=== PATIENT | female | born 1935 | race Caucasian/White ===

== ENCOUNTER 2016-10-19 07:51 | Inpatient (IN) | payer MEDICARE ==
[~2016-10-19] VITALS: Ht 157.5 cm; Wt 72.0 kg
[2016-10-19] MEDS ORDERED: CHOL1TAB42 PO (08:37)
[2016-10-19] MEDS ORDERED: SULF500T3 PO (08:37)
[2016-10-19] MEDS ORDERED: POTA10TA2 PO (08:37)
[2016-10-19] MEDS ORDERED: BISO10TA2 PO (08:37)
[2016-10-19] MEDS ORDERED: VITA10007 PO (08:37)
[2016-10-19] MEDS ORDERED: HYDR200T3 PO (08:37)
[2016-10-19] MEDS ORDERED: BOSW5TAB PO (08:37)
[2016-10-19] MEDS ORDERED: AMLO5TAB2 PO (08:37)
[2016-10-19] MEDS ORDERED: VITA10004 PO (08:37)
[2016-10-19] MEDS ORDERED: ZBEC PO (08:37)
[2016-10-19] MEDS ORDERED: TRAM50TA PO (08:37)
[2016-10-19] MEDS ORDERED: ZOLP5TAB3 PO (08:37)
[2016-10-19] MEDS ORDERED: ASPI1TAB69 PO (08:37)
[2016-10-19] MEDS ORDERED: FISH120014 PO (08:37)
[2016-10-19] MEDS ORDERED: CALTTAB PO (08:37)
[2016-10-19] MEDS ORDERED: LEVO25TA4 PO (08:37)
[2016-10-19] MEDS ORDERED: VITA400C5 PO (08:37)
[2016-10-19] MEDS ORDERED: ZYRT10CA PO (08:42)
[2016-10-30 05:43] VITALS: BP 176/69; PULSE 65; RESP 16; TEMP 97.6; O2SAT 100
[2016-10-30] MEDS: CHLORHEXIDINE GLUCONATE 4% SOLN 120 ML BTL TOP SCH (05:45)
[2016-10-30] MEDS ORDERED: INSULIN HUMAN REGULAR 1,000 UNITS/10 ML VIAL SQ PRN (05:45)
[2016-10-30] MEDS ORDERED: METOPROLOL TARTRATE 25 MG TAB PO PRN (05:45)
[2016-10-30] MEDS ORDERED: GENTAMICIN SULFATE 80 MG/2 ML VIAL ONE (06:05)
[2016-10-30] MEDS ORDERED: MIDAZOLAM HCL 5 MG/5 ML VIAL ONE (06:24)
[2016-10-30] MEDS ORDERED: ACETAMINOPHEN 1000 MG/100 ML VIAL IV ONE (06:52)
[2016-10-30] MEDS ORDERED: ceFAZolin 2 GM PREMIX 50 ML ONE (06:58)
[2016-10-30] MEDS ORDERED: SODIUM CHLORIDE 0.9% IV SCH ×2 (07:00→10:00)
[2016-10-30] MEDS ORDERED: ceFAZolin 1,000 MG/NS 100 ML IV SCH ×2 (07:00)
[2016-10-30] MEDS ORDERED: TRANEXAMIC ACID IV SCH ×2 (07:00→10:00)
[2016-10-30] MEDS ORDERED: EXPAREL PERI-ARTICULAR INJECTION (TOTAL VOL. 100 ML) P-ARTICULR SCH ×2 (07:00)
[2016-10-30] MEDS ORDERED: SODIUM CHLORID 0.9% 500 ML IV SCH (07:00)
[2016-10-30] MEDS ORDERED: LACTATED RINGER'S 1000 ML IV SCH (07:00)
[2016-10-30] MEDS ORDERED: TRANEXAMIC ACID INJ 1,000 MG/10 ML AMP IV ONE (07:12)
[2016-10-30] MEDS ORDERED: MORPHINE SULFATE 4 MG/ML INJ IV PUSH PRN (07:15)
[2016-10-30] MEDS ORDERED: ZOLPIDEM TARTRATE 5 MG TAB PO PRN ×2 (07:15→09:15)
[2016-10-30] MEDS ORDERED: SODIUM CHLORIDE 0.9% FLUSH 5 ML FLUSH IVF PRN (07:15)
[2016-10-30] MEDS ORDERED: ONDANSETRON HCL 4 MG/2 ML VIAL IVP PRN (07:15)
[2016-10-30] MEDS ORDERED: TRANEXAMIC ACID INJ 0 MG in SODIUM CHLORIDE 0.9% INJ 100 ML IV SCH (07:15)
[2016-10-30] MEDS ORDERED: BUPIVACAINE LIPOSOME PF 1.3% 20 ML VIAL INFIL ONE (07:30)
[2016-10-30] MEDS: SODIUM CHLORIDE 0.9% FLUSH 5 ML FLUSH IVF SCH ×2 (09:00→20:24)
[2016-10-30] MEDS ORDERED: CETIRIZINE HCL 10 MG TAB PO PRN (09:15)
[2016-10-30] MEDS ORDERED: Post-op Orders (for Pharmacy) MISC XX ONE (09:26)
[2016-10-30] MEDS ORDERED: PILL SPLITTER OTHER PRN (09:45)
[2016-10-30] MEDS ORDERED: DO NOT ADM ANY ANTICOAGULANT DRUGS XX PRN (10:00)
[2016-10-30] MEDS: LACTATED RINGER'S 1000 ML INJ 1,000 ML IV SCH ×3 (10:48→22:09)
[2016-10-30] MEDS: KETOROLAC TROMETHAMINE 30 MG/ML (IVP) VIAL IVP SCH ×3 (10:55→22:03)
--- NOTE | 2016-10-30 11:43 | RADRPT ---
EXAM DATE/TIME: 10/30/2016 10:14 [place] COMPARISON: No previous studies available for comparison. INDICATIONS : Post op left knee surgery. MEDICAL HISTORY : Unobtainable. SURGICAL HISTORY : Unobtainable. ENCOUNTER: Initial ACUITY: 1 day PAIN SCORE: 0/10 LOCATION: Left knee. FINDINGS: Two view examination of the left knee demonstrates total knee arthroplasty. All 3 components are prop erly positioned. Suprapatellar drain is in place. Lucency overlying the anterior cortex of the proxim al tibia I believe represents an overlying catheter/tubing. CONCLUSION: Appropriate postoperative appearance of the left knee status post total arthroplasty. Suprapatel lar drain is in place. Morgan Rodas MD on October 30, 2016 at 11:39 Board Certified Radiologist. This report was verified electronically.
[2016-10-30] MEDS ORDERED: PROPOFOL 200 MG/20 ML AMP IV ONE (12:00)
[2016-10-30] MEDS ORDERED: LACTATED RINGER'S 1000 ML INJ 1,000 ML IV ONE (12:00)
[2016-10-30] MEDS ORDERED: ePHEDrine/NS 50 MG/5 ML SYR IV ONE (12:00)
[2016-10-30] MEDS ORDERED: BUPIVACAINE HCL PF 0.5% 30 ML VIAL NB ONE (12:52)
--- NOTE | 2016-10-30 15:02 | PD.CONS ---
HPI Service [facility] Hospital[facility] Consult Requested By Orthopedic service Reason for Consult Medical management postop history of rheumatoid arthritis hypothyroidism hypertension Primary Care Physician Non-Staff Diagnoses: History of Present Illness Patient is a very pleasant 81-year-old female who looks younger than stated age who was admitted here and underwent left total knee arthroplasty today by Dr. Frank. Patient has history of rheumatoid arthritis hypertension hypothyroidism who has been having increasing pain of the left knee and finally admitted for this procedure. Review of Systems Constitutional: DENIES: Diaphoretic episodes, Fatigue, Fever, Weight gain, Weight loss, Chills, Dizziness, Change in appetite, Night Sweats Endocrine: DENIES: Abnorml menstrual pattern, Heat/cold intolerance, Polydipsia , Polyuria, Polyphagia Eyes: DENIES: Blurred vision, Diplopia, Eye inflammation, Eye pain, Vision loss , Photosensitivity, Double Vision Ears, nose, mouth, throat: DENIES: Tinnitus, Hearing loss, Vertigo, Nasal discharge, Oral lesions, Throat pain, Hoarseness, Ear Pain, Running Nose, Epistaxis, Sinus Pain, Toothache, Odynophagia Respiratory: DENIES: Apneas, Cough, Snoring, Wheezing, Hemoptysis, Sputum production, Shortness of breath Cardiovascular: DENIES: Chest pain, Palpitations, Syncope, Dyspnea on Exertion , PND, Lower Extremity Edema, Orthopnea, Claudication Gastrointestinal: DENIES: Abdominal pain, Black stools, Bloody stools, Constipation, Diarrhea, Nausea, Vomiting, Difficulty Swallowing, Anorexia Genitourinary: DENIES: Abnormal vaginal bleeding, Dysmenorrhea, Dyspareunia, Sexual dysfunction, Urinary frequency, Urinary incontinence, Urgency, Hematuria , Dysuria, Nocturia, Vaginal discharge Musculoskeletal: COMPLAINS OF: Joint pain Integumentary: DENIES: Abnormal pigmentation, Pruritus, Rash, Nail changes, Breast masses, Breast skin changes, Nipple discharge Hematologic/lymphatic: DENIES: Bruising, Lymphadenopathy Immunologic/allergic: DENIES: Eczema, Urticaria Neurologic: DENIES: Abnormal gait, Headache, Localized weakness, Paresthesias, Seizures, Speech Problems, Tremor, Poor Balance Psychiatric: DENIES: Anxiety, Confusion, Mood changes, Depression, Hallucinations, Agitation, Suicidal Ideation, Homicidal Ideation, Delusions Past Family Social History Allergies: Coded Allergies: Penicillin (Verified Allergy, Severe, Hives, 10/30/16) Past Medical History History of rheumatoid arthritis Hypertension Hypothyroidism Allergy Past Surgical History Hysterectomy Bilateral cataract surgery Right fifth finger surgery Reported Medications Vitamin C, vitamin B 12, potassium chloride daily Karla a 10 mg daily Hydrochlorothiazide 6.25 mg daily Synthroid 25 g daily Amlodipine 5 mg daily Plaquenil 200 mg twice a Sulfadiazine 500 mg twice a day Os-Angel plus vitamin D Cetirizine Active Ordered Medications See EMR Family History Noncontributory Social History Nonsmoker Occasional wine Physical Exam Vital Signs Vital Signs Date Time Temp Pulse Resp B/P Pulse Ox O2 Delivery O2 Flow Rate FiO2 10/30/16 11:30 59 16 145/65 100 Nasal Cannula 2 10/30/16 11:00 96.5 59 16 143/57 99 Nasal Cannula 2 10/30/16 10:30 96.3 58 16 138/56 100 Nasal Cannula 2 10/30/16 10:15 60 16 133/58 100 Nasal Cannula 2 10/30/16 10:00 60 15 134/50 100 Nasal Cannula 2 10/30/16 09:45 58 15 117/55 100 Nasal Cannula 2 10/30/16 09:28 95.8 61 15 114/58 100 Nasal Cannula 2 10/30/16 06:35 68 12 138/69 98 10/30/16 06:15 99 Nasal Cannula 3 10/30/16 05:59 97.7 61 14 176/66 99 10/30/16 05:43 97.6 65 16 176/69 100 Physical Exam GENERAL: This is a well-nourished, well-developed patient, in no apparent distress. SKIN: No rashes, ecchymoses or lesions. Cool and dry. HEAD: Atraumatic. Normocephalic. EYES: Pupils equal round and reactive. Extraocular motions intact. No scleral icterus. ENT: Nose without bleeding, Throat without erythema, tonsillar hypertrophy or exudate. Uvula midline. Airway patent. NECK: Trachea midline. No JVD or lymphadenopathy. Supple, nontender, no meningeal signs. CARDIOVASCULAR: Regular rate and rhythm RESPIRATORY: Clear to auscultation. Breath sounds equal bilaterally. No wheezes , rales, or rhonchi. GASTROINTESTINAL: Abdomen soft, non-tender, nondistended. No hepato-splenomegaly , or palpable masses. No guarding. MUSCULOSKELETAL: Extremities without clubbing, cyanosis, or edema. Left lower extremity with post op plastic bandage dressing in place and draining place Negative Homans sign bilaterally. NEUROLOGICAL: Awake and alert. Cranial nerves II through XII intact. Moves all extremities spontaneously Laboratory Laboratory Tests Test 10/30/16 10/30/16 05:45 07:17 Blood Type O NEGATIVE O NEGATIVE Antibody Screen POSITIVE Antibody Identification Anti-D Crossmatch Leukocyte-Reduced Red Blood Cells Blood Bank Comment Imaging Last Impressions Knee X-Ray 10/30/16 0000 Signed Impressions: Service Date/Time: Sunday, October 30, 2016 10:14 - CONCLUSION: Appropriate postoperative appearance of the left knee status post total arthroplasty. Suprapatellar drain is in place. Morgan Rodas MD Assessment and Plan Assessment and Plan 81-year-old female admitted for left knee surgery Status post left total knee arthroplasty Orthopedic surgery following History of hypertension continue on medications hydrochlorothiazide, amlodipine , Zebeta History of rheumatoid arthritis. Continue on regimen of Plaquenil sulfas Diazine History of hypothyroidism continue Synthroid 25 g daily Continue on cetirizine for history of allergy DVT prophylaxis per orthopedics DC planning- [facility] facility Thank you for this consult we'll follow patient in-house with you Carmela Deutsch MD Oct 30, 2016 15:02
[2016-10-30] MEDS ORDERED: *morphine SULFATE 8 MG/ML PERIprocedure ONLY ONE ×2 (15:45→16:54)
[2016-10-30 18:02] VITALS: BP 136/65; PULSE 67; RESP 20; TEMP 100.8; O2SAT 95
[2016-10-30] MEDS: CALCIUM/VITAMIN D 250 MG/125 U TAB PO SCH (20:22)
[2016-10-30] MEDS: HYDROXYCHLOROQUINE SULFATE 200 MG TAB PO SCH (20:23)
[2016-10-30] MEDS: ACETAMINOPHEN/HYDROcodone 325 MG/7.5 MG TAB PO PRN ×2 (20:23→22:03)
[2016-10-30] MEDS: amLODIPine BESYLATE 5 MG TAB PO SCH (20:23)
[2016-10-30] MEDS: MAGNESIUM HYDROXIDE SUSP 30 ML CUP PO PRN (20:24)
[2016-10-30 20:39] VITALS: BP 128/54; PULSE 69; RESP 16; TEMP 98.6; O2SAT 96
[2016-10-30] MEDS: sulfaSALAzine 500 MG TAB PO SCH (21:06)
[2016-10-31] VITALS (7 sets, daily range): BP systolic 112–146; BP diastolic 55–66; PULSE 61–69; RESP 15–18; TEMP 97–98.2; O2SAT 90–97
[2016-10-31] MEDS: ACETAMINOPHEN/HYDROcodone 325 MG/7.5 MG TAB PO PRN ×5 (02:57→20:21)
[2016-10-31] MEDS: CHLORHEXIDINE GLUCONATE 4% SOLN 120 ML BTL TOP SCH ×2 (04:35→20:09)
[2016-10-31] MEDS: LEVOTHYROXINE SODIUM 25 MCG TAB PO SCH (05:37)
[2016-10-31] MEDS: KETOROLAC TROMETHAMINE 30 MG/ML (IVP) VIAL IVP SCH ×4 (05:38→23:44)
[2016-10-31 07:02] LABS: HEMATOCRIT 31.7 % (35.0-46.0); REVIEW FLAG FINAL
--- NOTE | 2016-10-31 07:11 | PD.ORT.PN ---
Subjective Post Op Day #: 1 Subjective Remarks She had a tetracaine spinal that lasted all day yesterday, so she had no PT. She has not dangled. There is no pain of significance. Objective Vitals Vital Signs Date Time Temp Pulse Resp B/P Pulse Ox O2 Delivery O2 Flow Rate FiO2 10/31/16 04:00 97.9 61 15 123/56 96 10/31/16 00:38 97.6 67 16 112/56 97 10/30/16 20:39 98.6 69 16 128/54 96 10/30/16 18:02 100.8 67 20 136/65 95 10/30/16 17:00 98.9 75 16 148/62 97 Nasal Cannula 2 10/30/16 16:00 75 16 141/65 98 Nasal Cannula 2 10/30/16 15:00 70 16 157/64 98 Nasal Cannula 2 10/30/16 14:00 70 16 153/58 97 Nasal Cannula 2 10/30/16 13:30 71 16 131/62 97 Nasal Cannula 2 10/30/16 13:00 69 16 126/53 97 Nasal Cannula 2 10/30/16 12:30 65 16 125/52 97 Nasal Cannula 2 10/30/16 12:00 97.6 67 16 125/56 100 Nasal Cannula 2 10/30/16 11:30 59 16 145/65 100 Nasal Cannula 2 10/30/16 11:00 96.5 59 16 143/57 99 Nasal Cannula 2 10/30/16 10:30 96.3 58 16 138/56 100 Nasal Cannula 2 10/30/16 10:15 60 16 133/58 100 Nasal Cannula 2 10/30/16 10:00 60 15 134/50 100 Nasal Cannula 2 10/30/16 09:45 58 15 117/55 100 Nasal Cannula 2 10/30/16 09:28 95.8 61 15 114/58 100 Nasal Cannula 2 I/O 10/30/16 10/30/16 10/30/16 10/31/16 10/31/16 10/31/16 07:00 15:00 23:00 07:00 15:00 23:00 Intake Total 1550 ml 880 ml 240 ml Output Total 250 ml 1200 ml 110 ml Balance 1300 ml -320 ml 130 ml Intake Oral 480 ml 240 ml IV Total 400 ml Other 1550 ml Output Urine Total 100 ml 1000 ml Drainage Total 200 ml 110 ml Estimated Blood Loss 150 ml # Voids 4 1 # Bowel Movements 0 0 Result Diagram: 10/31/16 0613 Imaging Knee x-ray looks good. Last 72 hours Impressions Knee X-Ray 10/30/16 0000 Signed Impressions: Service Date/Time: Sunday, October 30, 2016 10:14 - CONCLUSION: Appropriate postoperative appearance of the left knee status post total arthroplasty. Suprapatellar drain is in place. Morgan Rodas MD Objective Remarks She is resting comfortably, supine in bed in the CPM. The original surgical dressing is dry and intact. The neurovascular status is intact. Assessment & Plan Ortho Post Op Day #: 1 Problem List: (1) Status post total left knee replacement Plan: Continue postop care. Start PT. Assessment and Plan Condition: Good. Orthopaedically stable. DVT prophylaxis: MOE stockings, sequentials, ASA. Discharge plans: Home with [facility], or Saturday. Has appointment. Rx: [place] 7.5/325. Shaye Frank MD (Charles) Oct 31, 2016 07:11
[2016-10-31] MEDS: BISOPROLOL FUMARATE 5 MG TAB PO SCH (07:28)
[2016-10-31] MEDS: HYDROCHLOROTHIAZIDE 25 MG TAB PO SCH (07:30)
[2016-10-31] MEDS: ASCORBIC ACID 500 MG TAB PO SCH (07:31)
[2016-10-31] MEDS: CYANOCOBALAMIN 1,000 MCG TAB PO SCH (07:31)
[2016-10-31] MEDS: CALCIUM/VITAMIN D 250 MG/125 U TAB PO SCH ×2 (07:31→20:10)
[2016-10-31] MEDS: HYDROXYCHLOROQUINE SULFATE 200 MG TAB PO SCH ×2 (07:31→20:11)
[2016-10-31] MEDS: sulfaSALAzine 500 MG TAB PO SCH ×2 (07:32→20:11)
[2016-10-31] MEDS: POTASSIUM CHLORIDE 10 MEQ CONTROLLED RELEASE TAB PO SCH (07:32)
[2016-10-31] MEDS: ASPIRIN EC 325 MG TABEC PO SCH (07:36)
--- NOTE | 2016-10-31 07:44 | HHI.FF ---
Face to Face Verification Diagnosis: (1) Status post total left knee replacement Physical Therapy Gait training Knee: Total knee, Protocol: Left, Gait training, Full weight bearing Left LE Weight Bearing: WB as tolerated Left LE Range of Motion: Active ROM (AROM, AAROM, PROM, PRE. ROM goal is 0 to 140 degrees. ROM in the OR was 0 to 150 degrees.) Nursing Nursing: Dressing changes Dressing Changes: Daily dressing change, Coverderm/Primapore Additional Instructions Remove steristrips on postop day 14. I have seen patient Cristiana Fernández on 10/31/16. My clinical findings support the need for the requested home health care services because: Ltd mobility - disease progression Limited ability to care for self High risk of falls I certify that my clinical findings support that this patient is homebound because: Post-op weakness Unsteady gait/balance Unsafe to leave home unassisted Shaye Frank MD (Charles) Oct 31, 2016 07:44
[2016-10-31] MEDS ORDERED: WALKER WHEELS/F1 MIS (07:48)
[2016-10-31] MEDS ORDERED: HYDR-3580 PO (07:48)
[2016-10-31] MEDS ORDERED: Aspirin Ec PO (07:48)
[2016-10-31] MEDS ORDERED: MISC-163 (07:48)
[2016-10-31] MEDS ORDERED: NON-FORMULARY DRUG (Boswellia-Glucosamine-Vitamin (Osteo Bi-Flex One A Day) 1 TAB) PO SCH (09:00)
[2016-10-31] MEDS ORDERED: RIVAROXABAN 10 MG TAB PO SCH (09:00)
[2016-10-31] MEDS ORDERED: NON-FORMULARY DRUG (Bisoprolol-Hydrochlorothiazide 1 TAB) PO SCH (09:00)
--- NOTE | 2016-10-31 09:23 | HHI.PR ---
Subjective Remarks very motivated with physical therapy voided, slightly emotional Objective Vitals Vital Signs Date Time Temp Pulse Resp B/P Pulse Ox O2 Delivery O2 Flow Rate FiO2 10/31/16 08:00 97.4 64 18 120/59 94 10/31/16 04:00 97.9 61 15 123/56 96 10/31/16 00:38 97.6 67 16 112/56 97 10/30/16 20:39 98.6 69 16 128/54 96 10/30/16 18:02 100.8 67 20 136/65 95 10/30/16 17:00 98.9 75 16 148/62 97 Nasal Cannula 2 10/30/16 16:00 75 16 141/65 98 Nasal Cannula 2 10/30/16 15:00 70 16 157/64 98 Nasal Cannula 2 10/30/16 14:00 70 16 153/58 97 Nasal Cannula 2 10/30/16 13:30 71 16 131/62 97 Nasal Cannula 2 10/30/16 13:00 69 16 126/53 97 Nasal Cannula 2 10/30/16 12:30 65 16 125/52 97 Nasal Cannula 2 10/30/16 12:00 97.6 67 16 125/56 100 Nasal Cannula 2 10/30/16 11:30 59 16 145/65 100 Nasal Cannula 2 10/30/16 11:00 96.5 59 16 143/57 99 Nasal Cannula 2 10/30/16 10:30 96.3 58 16 138/56 100 Nasal Cannula 2 10/30/16 10:15 60 16 133/58 100 Nasal Cannula 2 10/30/16 10:00 60 15 134/50 100 Nasal Cannula 2 10/30/16 09:45 58 15 117/55 100 Nasal Cannula 2 10/30/16 09:28 95.8 61 15 114/58 100 Nasal Cannula 2 I/O 10/30/16 10/30/16 10/30/16 10/31/16 10/31/16 10/31/16 07:00 15:00 23:00 07:00 15:00 23:00 Intake Total 1550 ml 880 ml 240 ml Output Total 250 ml 1200 ml 110 ml Balance 1300 ml -320 ml 130 ml Intake Oral 480 ml 240 ml IV Total 400 ml Other 1550 ml Output Urine Total 100 ml 1000 ml Drainage Total 200 ml 110 ml Estimated Blood Loss 150 ml # Voids 4 1 # Bowel Movements 0 0 Result Diagram: 10/31/16 0613 Imaging Last Impressions Knee X-Ray 10/30/16 0000 Signed Impressions: Service Date/Time: Sunday, October 30, 2016 10:14 - CONCLUSION: Appropriate postoperative appearance of the left knee status post total arthroplasty. Suprapatellar drain is in place. Morgan Rodas MD Objective Remarks GENERAL: awake and alert, SKIN: Warm and dry. EYES: No scleral icterus. No injection or drainage. NECK: Supple, trachea midline. No JVD or lymphadenopathy. CARDIOVASCULAR: Regular rate and rhythm without murmurs, gallops, or rubs. RESPIRATORY: Breath sounds equal bilaterally. No accessory muscle use. GASTROINTESTINAL: Abdomen soft, non-tender, nondistended. Left knee- post op dressing in place, hemovac in place, moves toes, Procedures 10/30- left total knee arthroplasty A/P Assessment and Plan 81-year-old female admitted for left knee surgery Status post left total knee arthroplasty Orthopedic surgery following History of hypertension continue on medications hydrochlorothiazide, amlodipine , Zebeta History of rheumatoid arthritis. Continue on regimen of Plaquenil sulfasalazine History of hypothyroidism continue Synthroid 25 g daily Continue on cetirizine for history of allergy DVT prophylaxis - per ortho- DC planning- intermediate facility Carmela Deutsch MD Oct 31, 2016 09:23
[2016-10-31] MEDS ORDERED: INFLUENZA VIRUS VACCINE (QUADRIVALENT) 0.5 ML SYR IM ONE (10:00)
[2016-10-31] MEDS: LACTATED RINGER'S 1000 ML INJ 1,000 ML IV SCH (20:09)
[2016-10-31] MEDS: SODIUM CHLORIDE 0.9% FLUSH 5 ML FLUSH IVF SCH (20:09)
[2016-10-31] MEDS: DOCUSATE SODIUM 100 MG CAP PO SCH (20:10)
[2016-10-31] MEDS: amLODIPine BESYLATE 5 MG TAB PO SCH (20:10)
[2016-10-31] MEDS: MAGNESIUM HYDROXIDE SUSP 30 ML CUP PO PRN (20:11)
[2016-11-01] VITALS: BP 145/65; PULSE 66; RESP 15; TEMP 97.1; O2SAT 92
[2016-11-01] MEDS: ACETAMINOPHEN/HYDROcodone 325 MG/7.5 MG TAB PO PRN ×3 (04:55→20:46)
[2016-11-01] MEDS: LEVOTHYROXINE SODIUM 25 MCG TAB PO SCH (05:00)
[2016-11-01] MEDS: KETOROLAC TROMETHAMINE 30 MG/ML (IVP) VIAL IVP SCH (05:00)
[2016-11-01 05:24] LABS: HEMATOCRIT 33.9 % (35.0-46.0); REVIEW FLAG FINAL
[2016-11-01 08:00] VITALS: BP 105/55; PULSE 69; RESP 16; TEMP 97.8; O2SAT 91
--- NOTE | 2016-11-01 08:51 | PD.ORT.PN ---
Subjective Post Op Day #: 2 Subjective Remarks She is doing well. She had nausea yesterday. There is no pain of significance. Range of Motion 0 to 87 degrees. Distance Walked 12 feet. Objective Vitals Vital Signs Date Time Temp Pulse Resp B/P Pulse Ox O2 Delivery O2 Flow Rate FiO2 11/01/16 00:00 97.1 66 15 145/65 92 10/31/16 20:00 98.2 69 15 146/66 96 10/31/16 16:00 98.1 65 18 135/56 93 10/31/16 12:51 93 21 10/31/16 12:00 97.0 63 18 140/55 90 I/O 10/31/16 10/31/16 10/31/16 11/01/16 11/01/16 11/01/16 07:00 15:00 23:00 07:00 15:00 23:00 Intake Total 240 ml 960 ml 240 ml 240 ml Output Total 110 ml 95 ml 45 ml Balance 130 ml 960 ml 145 ml -45 ml 240 ml Intake Oral 240 ml 960 ml 240 ml 240 ml Drainage Total 110 ml 95 ml 45 ml # Voids 1 2 2 2 # Bowel Movements 0 0 0 1 Result Diagram: 11/01/16 0445 Imaging Knee x-ray looks good. Last 72 hours Impressions Knee X-Ray 10/30/16 0000 Signed Impressions: Service Date/Time: Sunday, October 30, 2016 10:14 - CONCLUSION: Appropriate postoperative appearance of the left knee status post total arthroplasty. Suprapatellar drain is in place. Morgan Rodas MD Objective Remarks She is OOB on the BSC. The dressing is dry and intact. The neurovascular status is intact. Assessment & Plan Ortho Post Op Day #: 2 Problem List: (1) Status post total left knee replacement Plan: Continue postop care. Start PT. Assessment and Plan Condition: Good. Orthopaedically stable. DVT prophylaxis: MOE stockings, sequentials, ASA. Discharge plans: SNF for rehab, Saturday. Has appointment. Rx: [place] 7.5/325. Shaye Frank MD (Charles) Nov 01, 2016 08:51
[2016-11-01] MEDS: BISOPROLOL FUMARATE 5 MG TAB PO SCH (09:00)
[2016-11-01] MEDS: HYDROCHLOROTHIAZIDE 25 MG TAB PO SCH (09:00)
[2016-11-01] MEDS: sulfaSALAzine 500 MG TAB PO SCH ×2 (09:00→20:47)
[2016-11-01] MEDS: LACTATED RINGER'S 1000 ML INJ 1,000 ML IV SCH ×2 (09:04→20:48)
[2016-11-01] MEDS: traMADol HCL 50 MG TAB PO PRN ×2 (09:50→18:04)
[2016-11-01] MEDS: CALCIUM/VITAMIN D 250 MG/125 U TAB PO SCH ×2 (09:50→20:47)
[2016-11-01] MEDS: ASCORBIC ACID 500 MG TAB PO SCH (09:51)
[2016-11-01] MEDS: ASPIRIN EC 325 MG TABEC PO SCH (09:51)
[2016-11-01] MEDS: CYANOCOBALAMIN 1,000 MCG TAB PO SCH (09:51)
[2016-11-01] MEDS: POTASSIUM CHLORIDE 10 MEQ CONTROLLED RELEASE TAB PO SCH (09:54)
[2016-11-01] MEDS: DOCUSATE SODIUM 100 MG CAP PO SCH ×2 (09:54→20:47)
[2016-11-01] MEDS: SODIUM CHLORIDE 0.9% FLUSH 5 ML FLUSH IVF SCH ×2 (09:54→20:48)
[2016-11-01] MEDS: HYDROXYCHLOROQUINE SULFATE 200 MG TAB PO SCH ×2 (09:54→20:46)
[2016-11-01 12:00] VITALS: BP 133/59; PULSE 70; RESP 16; TEMP 96.1; O2SAT 93
--- NOTE | 2016-11-01 12:24 | MP ---
cc: Joseph YEPEZ. DATE OF SURGERY 10/30/2016 PREOPERATIVE DIAGNOSIS Primary osteoarthritis left knee. POSTOPERATIVE DIAGNOSIS Primary osteoarthritis left knee. OPERATION PERFORMED Left total knee arthroplasty with [place] Triathlon prosthesis (uncemented). SURGEON Shaye Yepez MD ANESTHESIA Spinal with supplemental adductor canal block and local. INDICATIONS AND FINDINGS This 81-year-old woman has had an 18-year history of left knee pain which has increased gradually over the years but more aggressively recently. It has limited her activities of daily living to the point that she has pain on weightbearing, pain on ascending and descending stairs and pain on standing from a seated position. She has had intermittent locking. Her ambulation tolerance is one-half mile. She has been treated with anti-inflammatory agents of varying types by her field operations supervisor and another orthopedic surgeon in the past as well as the undersigned. She has also been treated with activity modification, intraarticular corticosteroids, ambulatory aids, physical therapy and weight loss. These no longer give her relief. She is known to have some rheumatoid arthritis as well. FINDINGS Physical findings show some lateral laxity and medial laxity. She has crepitation on range of motion. There is tenderness. There is an effusion. X-rays show loss of articular cartilage to [id number] in the lateral compartment with osteophytes in the medial, lateral and patellofemoral compartments. There is subchondral sclerosis laterally. Operative findings showed severe arthritis in the left knee with loss of articular cartilage to [id number] in the lateral compartment, nearly so in the medial compartment and nearly so in the patellofemoral compartment. There were large osteophytes. Some synovial proliferation as noted but no pannus formation. PROSTHESIS USED [place] Triathlon prosthesis with the femur being a size 4, cruciate-retaining, uncemented; the tibia being a size 3, baseplate of Tritanium with the spacer being a size 3 cruciate-retaining 9-mm thickness. The patella was a size 29-mm asymmetric Tritanium backed. The polyethylene is X3 polyethylene. PROCEDURE The patient had an adductor canal block carried out preoperatively. She was then transferred to the clean-air operating suite where a spinal anesthetic was administered. She received prophylactic antibiotics in the form of Ancef. She received tranexamic acid. She was placed in a supine position on the operating table with a small bolster under the left hip. A pneumatic tourniquet was applied to the left thigh. The limb was then prepped with alcohol, Hibiclens and Chloraprep and draped in the usual manner with the knee draped free. An appropriate time-out procedure was carried out. The skin incision was marked prior to making it. Local anesthesia was administered into the incision site prior to making the incision. An incision was made from about two to three fingerbreadths above the superior medial pole of the patella down to the tibial tubercle on the medial side. The incision was deepened through the subcutaneous tissues to the retinacular structures which were exposed medially and laterally. A medial retinacular incision was made from the superior medial pole of the patella down to the tibial tubercle and up into the quadriceps tendon splitting it longitudinally in the medial one-third. The patella was then reflected. Medial and lateral dissection was carried out. The infrapatellar fat pad was debulked. The posterior surface of the patella was excised with the oscillating saw taking care to prevent injury to associated structures. The patella protector was applied. The patella was flipped into the lateral gutter. After marking Whitesides line on the femur, a fenestration was made in the distal end of the femur with the large drill. The distal femoral cutting guide and jig were assembled for a 5-degrees, 8-mm cut. The cutting block was stabilized with pins. The jig was removed. The distal femoral cut was completed with the oscillating saw. The sizing guide was positioned in place along Whitesides line and the epicondylar axis. This was stabilized with pins. The size of the femur was determined to be a size 4. The four-in-one cutting block was then positioned in place and stabilized with pins. Anterior and posterior cuts were made followed by posterior and anterior chamfer cuts. Osteophytes were trimmed. Medial and lateral meniscectomies were completed. The anterior cruciate ligament was excised. The tibial cutting guide and jig were assembled and positioned in place for the appropriate alignment. The cutting block was stabilized with pins. The jig was removed. The depth of cut was verified with the spacer block. The cutting block was stabilized with an additional cross pin. The proximal tibial cut was completed with the oscillating saw taking care to prevent injury to neurovascular and ligamentous structures. The local anesthesia was administered throughout the knee in the posterior capsule and associated structures. The tibial baseplate trial was determined to be appropriate for a size 3. The 9-mm spacer was inserted into this. With this in place the femoral component was impacted into place. The tibial baseplate was adjusted for alignment and stabilized with pins. The patella drill holes were made for the 29-mm patella. A trial patella was positioned in place. The knee was taken through a range of motion. With a trial prosthesis in place the range of motion was 0 degrees extension to 150 degrees of flexion by gravity. The patella trial was removed. Femoral drill holes were made followed by removal of the femoral trial. The tibial spacer was removed. The tibial punch was impacted through its guide and removed. The tibial drill guide was positioned and drill holes made. The tibial drill guide was then removed. The cut ends of bone were then cleaned with pulse lavage. The tibial baseplate was impacted into place. The spacer was inserted. The femoral component was then impacted into place. The patella component was positioned in place and stabilized with a patella vice. The prosthesis used was a [employer] Triathlon uncemented femoral component size 4 cruciate-retaining. The tibia was a Tritanium baseplate size three with a 9-mm cruciate-retaining spacer of X3 polyethylene. The patella was a Tritanium backed asymmetric patella size 29-mm. The knee was then taken through a range of motion. Range of motion was easily 0 degrees extension to 150 degrees of flexion with excellent stability on flexion and extension. Drains were brought out the superolateral aspect of the suprapatellar pouch. The remainder of the knee was then injected with local anesthetic. The wound was then closed in layers using 0 Vicryl interrupted [id number] sutures for the retinacular and capsular structures, 2-0 Vicryl interrupted simple sutures with buried knots for the subcutaneous tissues and 4-0 Monocryl continuous subcuticular closure for the skin. The wound was dressed with Steri-Strips, followed by dry dressing, sterile Sof-Rol, cooling pad, further sterile Sof-Rol and Curt bandage from the base of the toes to midthigh. The patient was transferred from the operating room to the recovery room in satisfactory condition having tolerated the procedure well. COUNTS Correct. SPECIMENS None. ESTIMATED BLOOD LOSS 150 mL. MD MAGALY Fernandez/BRITTNY /9:18 AM /12:03 PM
--- NOTE | 2016-11-01 14:29 | HHI.PR ---
Subjective Remarks voiding spontaneously and had a good BM "that felt good" very motivated with therapy pain minimla - controlled with po pain meds Objective Vitals Vital Signs Date Time Temp Pulse Resp B/P Pulse Ox O2 Delivery O2 Flow Rate FiO2 11/01/16 08:00 97.8 69 16 105/55 91 11/01/16 08:00 91 11/01/16 00:00 97.1 66 15 145/65 92 10/31/16 20:00 98.2 69 15 146/66 96 10/31/16 16:00 98.1 65 18 135/56 93 I/O 10/31/16 10/31/16 10/31/16 11/01/16 11/01/16 11/01/16 07:00 15:00 23:00 07:00 15:00 23:00 Intake Total 240 ml 960 ml 240 ml 240 ml Output Total 110 ml 95 ml 45 ml Balance 130 ml 960 ml 145 ml -45 ml 240 ml Intake Oral 240 ml 960 ml 240 ml 240 ml Drainage Total 110 ml 95 ml 45 ml # Voids 1 2 2 2 # Bowel Movements 0 0 0 1 Result Diagram: 11/01/16 0445 Imaging Last Impressions Knee X-Ray 10/30/16 0000 Signed Impressions: Service Date/Time: Sunday, October 30, 2016 10:14 - CONCLUSION: Appropriate postoperative appearance of the left knee status post total arthroplasty. Suprapatellar drain is in place. Morgan Rodas MD Objective Remarks GENERAL: awake and alert, SKIN: Warm and dry. EYES: No scleral icterus. No injection or drainage. NECK: Supple, trachea midline. No JVD or lymphadenopathy. CARDIOVASCULAR: Regular rate and rhythm without murmurs, gallops, or rubs. RESPIRATORY: Breath sounds equal bilaterally. No accessory muscle use. GASTROINTESTINAL: Abdomen soft, non-tender, nondistended. LLE- on CPM Procedures 10/30- left total knee arthroplasty A/P Assessment and Plan 81-year-old female admitted for left knee surgery Status post left total knee arthroplasty 10/30 Orthopedic surgery following History of hypertension continue on medications hydrochlorothiazide, amlodipine , Zebeta History of rheumatoid arthritis. Continue on regimen of Plaquenil sulfasalazine History of hypothyroidism continue Synthroid 25 g daily Continue on cetirizine for history of allergy DVT prophylaxis - per Ortho service DC planning- [facility] facility- choice- Carmela Shultz MD Nov 01, 2016 14:29
[2016-11-01 16:00] VITALS: BP 155/65; PULSE 73; RESP 16; TEMP 97.7; O2SAT 93
[2016-11-01 20:00] VITALS: BP 167/71; PULSE 76; RESP 20; TEMP 99.1; O2SAT 93
[2016-11-01] MEDS: amLODIPine BESYLATE 5 MG TAB PO SCH (20:47)
[2016-11-01 22:00] VITALS: O2SAT 92
[2016-11-02] VITALS: BP 142/68; PULSE 83; RESP 20; TEMP 99.1; O2SAT 94
[2016-11-02] MEDS: traMADol HCL 50 MG TAB PO PRN (03:50)
[2016-11-02 04:00] VITALS: BP 154/69; PULSE 90; RESP 20; TEMP 97.3; O2SAT 93
[2016-11-02] MEDS: LEVOTHYROXINE SODIUM 25 MCG TAB PO SCH (04:40)
[2016-11-02] MEDS: ACETAMINOPHEN/HYDROcodone 325 MG/7.5 MG TAB PO PRN ×2 (05:15→09:25)
--- NOTE | 2016-11-02 07:26 | PD.ORT.PN ---
Subjective Post Op Day #: 3 Subjective Remarks She is doing well. She had some pain last night. There is no pain of significance at this time. She is a bit apprehensive. Range of Motion -3 to 95 degrees. Distance Walked 20 feet in AM; 60 feet in PM. Objective Vitals Vital Signs Date Time Temp Pulse Resp B/P Pulse Ox O2 Delivery O2 Flow Rate FiO2 11/02/16 04:00 97.3 90 20 154/69 93 11/02/16 00:00 99.1 83 20 142/68 94 11/01/16 22:00 92 21 11/01/16 20:00 99.1 76 20 167/71 93 11/01/16 16:00 97.7 73 16 155/65 93 11/01/16 12:00 96.1 70 16 133/59 93 11/01/16 08:00 97.8 69 16 105/55 91 11/01/16 08:00 91 I/O 11/01/16 11/01/16 11/01/16 11/02/16 11/02/16 11/02/16 07:00 15:00 23:00 07:00 15:00 23:00 Intake Total 1440 ml 240 ml 340 ml Output Total 45 ml 280 ml 800 ml Balance -45 ml 1440 ml -40 ml -460 ml Intake Oral 1440 ml 240 ml 340 ml Output Urine Total 280 ml 800 ml Drainage Total 45 ml # Voids 5 # Bowel Movements 2 0 0 Result Diagram: 11/01/16 0445 Imaging Knee x-ray looks good. Last 72 hours Impressions Knee X-Ray 10/30/16 0000 Signed Impressions: Service Date/Time: Sunday, October 30, 2016 10:14 - CONCLUSION: Appropriate postoperative appearance of the left knee status post total arthroplasty. Suprapatellar drain is in place. Morgan Rodas MD Objective Remarks She is resting comfortably, supine in bed in the CPM. The dressing is dry and intact. Theer is no erythema or induration. The neurovascular status is intact. Assessment & Plan Ortho Post Op Day #: 3 Problem List: (1) Status post total left knee replacement Plan: Continue postop care and PT. Assessment and Plan Condition: Good. Orthopaedically stable. DVT prophylaxis: MOE stockings, sequentials, ASA. Discharge plans: SNF for rehab, today. Has appointment. Rx: [place] 7.5/325. Shaye Frank MD (Charles) Nov 02, 2016 07:26
[2016-11-02 08:00] VITALS: BP 142/64; PULSE 82; RESP 18; TEMP 97; O2SAT 92
[2016-11-02] MEDS: ASCORBIC ACID 500 MG TAB PO SCH (09:26)
[2016-11-02] MEDS: HYDROCHLOROTHIAZIDE 25 MG TAB PO SCH (09:26)
[2016-11-02] MEDS: CALCIUM/VITAMIN D 250 MG/125 U TAB PO SCH (09:26)
[2016-11-02] MEDS: POTASSIUM CHLORIDE 10 MEQ CONTROLLED RELEASE TAB PO SCH (09:27)
[2016-11-02] MEDS: CYANOCOBALAMIN 1,000 MCG TAB PO SCH (09:27)
[2016-11-02] MEDS: BISOPROLOL FUMARATE 5 MG TAB PO SCH (09:27)
[2016-11-02] MEDS: sulfaSALAzine 500 MG TAB PO SCH (09:27)
[2016-11-02] MEDS: HYDROXYCHLOROQUINE SULFATE 200 MG TAB PO SCH (09:27)
[2016-11-02] MEDS: ASPIRIN EC 325 MG TABEC PO SCH (09:28)
[2016-11-02] MEDS: DOCUSATE SODIUM 100 MG CAP PO SCH (09:28)
[2016-11-02] MEDS: SODIUM CHLORIDE 0.9% FLUSH 5 ML FLUSH IVF SCH (09:28)
--- NOTE | 2016-11-02 10:09 | HHI.PR ---
Subjective Remarks [facility] Objective Vitals Vital Signs Date Time Temp Pulse Resp B/P Pulse Ox O2 Delivery O2 Flow Rate FiO2 11/02/16 08:00 97.0 82 18 142/64 92 11/02/16 04:00 97.3 90 20 154/69 93 11/02/16 00:00 99.1 83 20 142/68 94 11/01/16 22:00 92 21 11/01/16 20:00 99.1 76 20 167/71 93 11/01/16 16:00 97.7 73 16 155/65 93 11/01/16 12:00 96.1 70 16 133/59 93 I/O 11/01/16 11/01/16 11/01/16 11/02/16 11/02/16 11/02/16 07:00 15:00 23:00 07:00 15:00 23:00 Intake Total 1440 ml 240 ml 340 ml Output Total 45 ml 280 ml 800 ml Balance -45 ml 1440 ml -40 ml -460 ml Intake Oral 1440 ml 240 ml 340 ml Output Urine Total 280 ml 800 ml Drainage Total 45 ml # Voids 5 # Bowel Movements 2 0 0 Result Diagram: 11/01/16 0445 Imaging Last Impressions Knee X-Ray 10/30/16 0000 Signed Impressions: Service Date/Time: Sunday, October 30, 2016 10:14 - CONCLUSION: Appropriate postoperative appearance of the left knee status post total arthroplasty. Suprapatellar drain is in place. Morgan Rodas MD Objective Remarks GENERAL: awake and alert, SKIN: Warm and dry. EYES: No scleral icterus. No injection or drainage. NECK: Supple, trachea midline. No JVD or lymphadenopathy. CARDIOVASCULAR: Regular rate and rhythm without murmurs, gallops, or rubs. RESPIRATORY: Breath sounds equal bilaterally. No accessory muscle use. GASTROINTESTINAL: Abdomen soft, non-tender, nondistended. LE- no edema good peripheral pulses Procedures 10/30- left total knee arthroplasty A/P Assessment and Plan 81-year-old female admitted for left knee surgery Status post left total knee arthroplasty 10/30 Orthopedic surgery following History of hypertension continue on medications hydrochlorothiazide, amlodipine , Zebeta History of rheumatoid arthritis. Continue on regimen of Plaquenil sulfasalazine History of hypothyroidism continue Synthroid 25 g daily Continue on cetirizine for history of allergy DVT prophylaxis - ASA per Ortho DC today [facility] facility- choice- Carmela Shultz MD Nov 02, 2016 10:08
== END 2016-11-02 10:10 | DRG 470 ==
LOC: HSDI 10-30 05:17 → EDUNIT# 10-30 07:00 → N06B 10-30 17:08
PROVIDERS: ADMIT Orthopaedic Surgery; ATTEND Orthopaedic Surgery
PROC: 3E0T3CZ (ICD-10-PCS; 2016-10-30)
PROC: 0SRD0JA Replacement of Left Knee Joint with Synthetic Substitute, Uncemented, Open Approach (ICD-10-PCS; principal; 2016-10-30 06:45)
DX: M17.12 Unilateral primary osteoarthritis, left knee (principal); M06.9 Rheumatoid arthritis, unspecified; I10 Essential (primary) hypertension; E03.9 Hypothyroidism, unspecified; R11.0 Nausea; Z23 Encounter for immunization
CPT/HCPCS: 73560; 85014; 85018; 86077; 86850; 86870; 86900; 86901; 86920; 86922; 90471; 90686; 94150; C1776; C9290; G0008; J0131; J0690; J1580; J1885; J2250; J2270; J7120; Q2038

== ENCOUNTER → 2016-10-19 | Outpatient (CLI) | payer MEDICARE ==
[~2016-10-19] MED LIST: AMLO5TAB2 PO; ASPI1TAB69 PO; Aspirin Ec PO; BISO10TA2 PO; BOSW5TAB PO; CALTTAB PO; CHOL1TAB42 PO; FISH120014 PO; HYDR-3580 PO; HYDR200T3 PO; LEVO25TA4 PO; MISC-163; POTA10TA2 PO; SULF500T3 PO; TRAM50TA PO; VITA10004 PO; VITA10007 PO; VITA400C5 PO; WALKER WHEELS/F1 MIS; ZBEC PO; ZOLP5TAB3 PO; ZYRT10CA PO
[2016-10-19 08:26] LABS: HEMATOCRIT 39.1 % (35.0-46.0); MEAN CELL VOLUME 90.5 FL (80.0-100.0); MEAN CORPUSCULAR HEMOGLOBIN 30.4 PG (27.0-34.0); MEAN CORPUSCULAR HGB CONC 33.6 % (32.0-36.0); PLATELET COUNT 251 TH/MM3 (150-450); RED BLOOD COUNT 4.32 MIL/MM3 (4.00-5.30); RED CELL DISTRIBUTION WIDTH 12.5 % (11.6-17.2); REVIEW FLAG FINAL; WHITE BLOOD COUNT 6.2 TH/MM3 (4.0-11.0)
[2016-10-19 08:36] LABS: APTT (PATIENT) 27.1 SEC (24.3-30.1); PROTHROMBIN TIME - PATIENT 10.6 SEC (9.8-11.6)
[2016-10-19 08:53] LABS: BICARBONATE 29.1 MEQ/L (21.0-32.0); POTASSIUM 3.6 MEQ/L (3.5-5.1)
[2016-10-19 09:10] LABS: BLOOD, URINE NEG (NEG); COMMENT (UR) CULT NOT INDICATED; CULTURE IF INDICATED CULT NOT INDICATED; GLUCOSE,URINE NEG (NEG); KETONE, URINE NEG (NEG); NITRITE,URINE NEG (NEG); SQUAMOUS EPITHELIAL CELL URINE <1 /hpf (0-5); URINE COLOR YELLOW (YELLW/STRAW)
--- NOTE | 2016-10-19 14:28 | EKG ---
Date Performed: 10/19/2016 Time Performed: 08:11:37 PTAGE: 81 years EKG: Sinus rhythm WITH FREQUENT ECTOPIC PREMATURE COMPLEXES BORDERLINE LEFT AXIS DEVIATION VOLTAGE CRITERIA FOR LVH NO NSPECIFIC T-WAVE ABNORMALITY ABNORMAL ECG NO PREVIOUS TRACING DOCTOR: Miya Jones Interpretating Date/Time 10/19/2016 14:22:33
== END ==
LOC: CPRE 07:46
PROVIDERS: ATTEND Orthopaedic Surgery
DX: Z01.810 Encounter for preprocedural cardiovascular examination (principal); Z01.812 Encounter for preprocedural laboratory examination; M17.12 Unilateral primary osteoarthritis, left knee; I10 Essential (primary) hypertension; R94.31 Abnormal electrocardiogram [ECG] [EKG]; M79.609 Pain in unspecified limb
CPT/HCPCS: 36415; 80048; 81001; 85027; 85610; 85730; 93005

== ENCOUNTER 2017-09-10 05:58 | Emergency (ER) | payer MEDICARE ==
[~2017-09-10] VITALS: Ht 157.5 cm; Wt 60.0 kg
[~2017-09-10 05:58] MED LIST changes: -ZBEC PO
[2017-09-10 05:59] VITALS: BP 140/84; PULSE 64; RESP 16; TEMP 98; O2SAT 97
[2017-09-10] MEDS ORDERED: ASPI-516 CHEW (06:11)
[2017-09-10] MEDS ORDERED: traMADol HCL 50 MG TAB PO ONE (06:30)
--- NOTE | 2017-09-10 06:36 | PD ---
HPI Chief Complaint: Pain: Acute or Chronic Time Seen by Provider: 06:07 Travel History International Travel<30 days: No Contact w/Intl Traveler<30days: No Traveled to known affect area: No History of Present Illness HPI 82-year-old female complains of left knee pain and swelling. Patient status post left total knee arthroplasty with prosthesis in October 2016. Patient has been doing well in-stent. Patient states that occasionally she had pain and swelling of the left knee which resolved by itself completely in the past. Patient started having increasing pain swelling on the left knee 2 days ago. Patient denies any trauma to the knee. Patient was seen in the emergency room at [facility] in [facility]. Patient had x-ray, ultrasound and CT of the left knee. Patient was advised to follow-up with orthopedist. Patient has appointment with Dr. Frank this afternoon. Patient states that she noticed a small soft tissue lump behind the left knee this morning with occasionally pain shooting up the posterior left thigh. Patient decided to come to the ED for evaluation. Patient denies any fever chills. PFSH Past Medical History Cancer: No Cardiovascular Problems: No Diabetes: No Diminished Hearing: No Endocrine: No Genitourinary: Yes (SENSITIVE BLADDER) Hepatitis: No Hiatal Hernia: No Hypertension: Yes Immune Disorder: No Musculoskeletal: Yes (RA, OA) Neurologic: No Psychiatric: No Reproductive: No Respiratory: Yes (SEASONAL ALLERGIES) Thyroid Disease: No Tetanus Vaccination: Unknown Influenza Vaccination: Yes Past Surgical History Abdominal Surgery: Yes (APPENDECTOMY) AICD: No Appendectomy: Yes Cardiac Surgery: No Ear Surgery: No Endocrine Surgery: No Eye Surgery: Yes (CATARACT) Genitourinary Surgery: Yes (BLADDER SUSPENSION) Gynecologic Surgery: Yes (HYSTERECTOMY) Joint Replacement: No Oral Surgery: No Pacemaker: No Thoracic Surgery: No Social History Alcohol Use: No Tobacco Use: No Substance Use: No Allergies-Medications (Allergen,Severity, Reaction): Coded Allergies: penicillin G (Unverified Allergy, Severe, Hives, 09/10/17) Reported Meds & Prescriptions Reported Meds & Active Scripts Active Walker with Front Wheels (Device) 1 Mis Mis 1 Ea .ROUTE DIRECTED Reported Aspirin 81 Mg Chew 81 Mg CHEW DAILY Vitamin B12 Tr (Cyanocobalamin) 1,000 Mcg Tab 1,000 Mcg PO DAILY E-400 (Vitamin E) 400 Unit Cap Units PO DAILY Vitamin D-3 (Cholecalciferol) 2,000 Unit Tab Units PO DAILY Osteo Bi-Flex One A Day (Lmvwpamfr-Davgkvwphgv-Gnqeusc) 1 Tab 1 Tab PO DAILY Tramadol (Tramadol HCl) 50 Mg Tab 50 Mg PO Q8H PRN Hydroxychloroquine (Hydroxychloroquine Sulfate) 200 Mg Tab 200 Mg PO BID Takw with food Sulfasalazine 500 Mg Tab 500 Mg PO BID Levothyroxine (Levothyroxine Sodium) 25 Mcg Tab 25 Mcg PO DAILY Zolpidem (Zolpidem Tartrate) 5 Mg Tab 5 Mg PO HS PRN Bisoprolol-Hydrochlorothiazide 10-6.25 Mg Tab 1 Tab PO DAILY Potassium Chloride ER (Potassium Chloride) 10 Meq Tab 10 Meq PO DAILY Amlodipine (Amlodipine Besylate) 5 Mg Tab 5 Mg PO HS Review of Systems General / Constitutional: No: Fever Eyes: No: Visual changes HENT: No: Headaches Cardiovascular: No: Chest Pain or Discomfort Respiratory: No: Shortness of Breath Gastrointestinal: No: Abdominal Pain Genitourinary: No: Dysuria Musculoskeletal: Positive: Pain Skin: No Rash Neurologic: No: Weakness Psychiatric: No: Depression Endocrine: No: Polydipsia Hematologic/Lymphatic: No: Easy Bruising Physical Exam Narrative GENERAL: Well-nourished, well-developed patient. SKIN: Focused skin assessment warm/dry. HEAD: Normocephalic. EYES: No scleral icterus. No injection or drainage. NECK: Supple, trachea midline. No JVD or lymphadenopathy. CARDIOVASCULAR: Regular rate and rhythm without murmurs, gallops, or rubs. RESPIRATORY: Breath sounds equal bilaterally. No accessory muscle use. GASTROINTESTINAL: Abdomen soft, non-tender, nondistended. MUSCULOSKELETAL: Patient has diffuse soft tissue swelling over the left knee joint. Mild ecchymosis noted anterior aspect the left knee joint. Mild increased heat noted. Limited range of motion of the left knee. The joints stable. Patient does not have much of tenderness on flexion and extension of the left knee. Sensorimotor function distally intact. BACK: Nontender without obvious deformity. No CVA tenderness. Neurologic exam normal. Data Data Last Documented VS Vital Signs Date Time Temp Pulse Resp B/P (MAP) Pulse Ox O2 Delivery O2 Flow Rate FiO2 09/10/17 05:59 98.0 64 16 140/84 (102) 97 Room Air MDM Medical Decision Making Medical Screen Exam Complete: Yes Emergency Medical Condition: Yes Differential Diagnosis Differential diagnosis including hemarthrosis, ligament injury, cyst, cellulitis , septic joint. Narrative Course 82-year-old female with left knee pain and swelling and ecchymosis. Status post left total knee arthroplasty with prosthesis in October 2016. Diagnosis Primary Impression: Hemarthrosis, left knee Patient Instructions: General Instructions Additional Instructions: Continue with Ultram as directed for pain. Follow-up with orthopedist this afternoon as scheduled. Return if worse. Med/Other Pt SpecificInfo: No Change to Meds Disposition: 01 DISCHARGE HOME Condition: Stable Earl Vences MD Sep 10, 2017 06:36
== END 2017-09-10 06:56 | disposition home or self-care (01) ==
LOC: NEPC 05:58
DX: M25.062 Hemarthrosis, left knee (principal); I10 Essential (primary) hypertension; Z96.652 Presence of left artificial knee joint
CPT/HCPCS: 99282